=== PATIENT | male | born 1935 | race Caucasian/White ===

== ENCOUNTER → 2019-08-19 | Outpatient (CLI) | payer OTHER, BC ==
[~2019-08-19] MED LIST: AMBEREN; ASA81BEC; CARVEDILOL3.125 MG; IRON325; LISINOPRIL2.5 MG; LORTAB 5 MG/5001 TA1; MOM; NOHOMEMEDICATIONS; PERCOCET 5-3251 EACH; PHISOHEX148 ML; SENOKOT-S1 TA1
== END ==
LOC: SJCVC 10:10
DX: Z01.810 Encounter for preprocedural cardiovascular examination (principal); I25.10 Atherosclerotic heart disease of native coronary artery without angina pectoris; I45.19 Other right bundle-branch block; I10 Essential (primary) hypertension; E78.5 Hyperlipidemia, unspecified; M15.3 Secondary multiple arthritis; Z79.82 Long term (current) use of aspirin; Z95.1 Presence of aortocoronary bypass graft

== ENCOUNTER → 2019-10-28 | Outpatient (CLI) | payer OTHER, BC | LOC: SJCVCIMAG 08:52 | DX: Z01.810 Encounter for preprocedural cardiovascular examination (principal); I08.3 Combined rheumatic disorders of mitral, aortic and tricuspid valves; R00.0 Tachycardia, unspecified; I25.810 Atherosclerosis of coronary artery bypass graft(s) without angina pectoris; I10 Essential (primary) hypertension; E78.5 Hyperlipidemia, unspecified; Z95.1 Presence of aortocoronary bypass graft ==